=== PATIENT | male | born 1995 | race Caucasian/White ===

== ENCOUNTER 2016-11-30 12:56 | Emergency (ER) | payer BC ==
[~2016-11-30] VITALS: Ht 172.7 cm; Wt 73.4 kg
[2016-11-30 13:11] VITALS: Ht 172.7 cm; Wt 73.4 kg
[2016-11-30 15:13] VITALS: TEMP 36.6
[2016-11-30] MEDS ORDERED: IBUPROFEN 200 MG TAB PO STA (15:18)
[2016-11-30] MEDS ORDERED: ACETAMINOPHEN 500 MG TAB PO STA (15:18)
[2016-11-30] MEDS ORDERED: SODIUM CHLORIDE 0.9% 1000ML 1,000 ML IV STA (15:19)
--- NOTE | 2016-11-30 16:45 | EMERGENCY ROOM VISIT NOTE ---
History Report prepared by Mallory: Rogerio Bautista Under the Supervision of: Dr. Florencio David M.D. First contact with patient: 15:10 Chief Complaint: FEVER Stated Complaint: HEADACHE, NECK PAIN, FEVER LIKE SYMPTOMS X4 DAYS History of Present Illness The patient is a 21 year old male who presents to the Emergency Room with complaints of a persistent illness beginning 3 days ago. He notes he went home this past weekend and developed a headache 3 days ago. He has found short-term relief of his headache with Advil. He notes having neck, back, and shoulder soreness, fever, rhinorrhea, and sore throat which causes pain with swallowing. The patient was seen at [facility] earlier today and was referred to the ER with concerns for meningitis or mononucleosis. He rate his pain a 3/10 but notes it can jump up to a 10/10 at time. The patient reports having a history of migraines. Source of History: patient Onset: 3 days ago Position: other (global ) Symptom Intensity: 3/10; 10/10 at times Quality: other (illness) Timing: other (persistent) Associated Symptoms: + back pain, + fevers, + headache, + neck pain, + sorethroat Note: The patient notes having shoulder pain, and rhinorrhea. Review of Systems See HPI for pertinent positives & negatives. A total of 10 systems reviewed and were otherwise negative. Past Medical & Surgical Medical Problems: (1) History of migraine Family History No pertinent family history stated. Social History Smoking Status: Never Smoker Drug Use: none Occupation Status: [employer] student Current/Historical Medications No Active Prescriptions or Reported Meds Allergies Coded Allergies: No Known Allergies (Unverified , 09/25/15) Physical Exam Vital Signs Date Time Temp Pulse Resp B/P Pulse Ox O2 Delivery O2 Flow Rate FiO2 11/30/16 15:13 36.6 68 18 147/81 98 Room Air 11/30/16 13:11 36.9 91 20 127/87 100 Room Air Physical Exam CONSTITUTIONAL: Nontoxic, mildly anxious, mild distress. Clearly no meningismus. HEENT: No icterus, moist mucous membranes. TMs are clear; mild pharyngeal edema and erythema bilaterally without exudate. NECK: No meningismus, trachea is midline. CARDIOVASCULAR: Regular rate, normal perfusion RESPIRATORY: Unlabored breathing. Clear to auscultation. GASTROINTESTINAL: Non-tender GENITOURINARY: No flank tenderness MUSCULOSKELETAL: Full range of motion NEUROLOGIC: No acute gross focal deficits. PSYCHIATRIC: Normal affect SKIN: Normal for ethnicity. Medical Decision & Procedures Laboratory Results Test 11/30/16 15:50 Influenza Type A Antigen Neg for Influ A (NEG) Influenza Type B Antigen Neg for Influ B (NEG) Labs reviewed by ED physician. Medications Administered Medications (Trade) Dose Ordered Sig/Jyoti Route Start Time Stop Time Status Last Admin Dose Admin Acetaminophen (Tylenol Tab) 1,000 mg NOW STAT PO 11/30/16 15:18 11/30/16 15:19 DC 11/30/16 16:08 1,000 MG Ibuprofen 800 mg 800 mg NOW STAT PO 11/30/16 15:18 11/30/16 15:19 DC 11/30/16 16:09 800 MG Sodium Chloride (Nss 1000ml) 1,000 ml @ 0 mls/hr Q0M STAT IV 11/30/16 15:19 11/30/16 15:20 DC 11/30/16 16:11 999 MLS/HR ED Course 1513: Past medical records reviewed. The patient was evaluated in room B7. A complete history and physical examination was performed. 1518: Ordered Ibuprofen 800 mg PO, and Acetaminophen 1,000 mg PO. 1519: Ordered NSS 1,000 ml @ mls/hr Wide Open IV. 1630: Upon reexamination the patient is doing well. I discussed results and treatment plan with the patient. He verbalizes agreement and understanding. The patient is ready for discharge. Medical Decision Differentials include viral syndrome. 21-year-old presents to emergency department for evaluation of rhinorrhea, subjective fevers and aches, and mild headache. He reports the headache was not resolved with Motrin. Symptoms have been present for roughly 4 days and he is noted to be referred here by the urgent care. He appears well and has no signs of meningismus. Mild symmetric erythema and edema noted on pharyngeal exam without exudates. Throat culture sent. CT ordered as patient denies known history of prior intracranial imaging and his chief complaint today was headache. He declined exam and that is reasonable given the clinical context is most consistent with viral syndrome. He appeared comfortable in no distress on reexamination after Tylenol and Motrin emergency room. He understands take both Tylenol and Motrin every 6 hours and return emergency room for any worsening worrisome symptoms. Impression Primary Impression: Viral syndrome Scribe Attestation The scribe's documentation has been prepared under my direction and personally reviewed by me in its entirety. I confirm that the note above accurately reflects all work, treatment, procedures, and medical decision making performed by me. Departure Information Dispostion Home / Self-Care Prescriptions No Active Prescriptions or Reported Meds Forms HOME CARE DOCUMENTATION FORM, IMPORTANT VISIT INFORMATION Patient Instructions My [facility], ED Viral Syndrome Additional Instructions Take Tylenol 650 mg and Motrin 600 mg every 6 hours as needed for pain or aches. It is normal for a viral syndrome to last 5-7 days. These return emergency room for any worsening or worrisome signs
[2016-11-30 17:31] VITALS: BP 122/75; PULSE 70; O2SAT 99
--- NOTE | 2016-12-03 18:24 | Pharmacy Progress Note ---
ED Pharmacist Culture FollowUp Date of Service: Dec 03, 2016. Called patient regarding throat culture. Patient reports still with sore throat and symptoms slightly worsening. Prescription for penicillin VK 500 mg po BID x10 days called to [facility] at the patient's request. Case discussed with Dr. Early, who is the prescribing provider.
== END 2016-11-30 17:32 | disposition home or self-care (01) ==
LOC: C.EDB 12:58
DX: B34.9 Viral infection, unspecified (principal)

== ENCOUNTER 2017-11-02 02:43 | Emergency (ER) | payer SELFPAY ==
[~2017-11-02] VITALS: Ht 170.2 cm; Wt 74.9 kg
[2017-11-02 02:47] VITALS: TEMP 36.3; Ht 170.2 cm; Wt 74.9 kg
[2017-11-02 03:27] VITALS: O2SAT 95
[2017-11-02 03:30] LABS: CALCIUM 8.3 mg/dl (8.5-10.1); CREATININE 1.04 mg/dl (0.60-1.40)
[2017-11-02] MEDS ORDERED: POTASSIUM CHLORIDE 10 MEQ TABCR PO STA (03:38)
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
[2017-11-02 06:02] VITALS: BP 122/73; PULSE 68; O2SAT 98
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
== END 2017-11-02 06:07 | disposition home or self-care (01) ==
LOC: EDBD 02:43 → C.EDB 02:45
DX: S09.90XA Unspecified injury of head, initial encounter (principal); F10.129 Alcohol abuse with intoxication, unspecified; E87.6 Hypokalemia; Y04.0XXA Assault by unarmed brawl or fight, initial encounter